=== PATIENT | female | born 1955 | race Caucasian/White ===

== ENCOUNTER 2019-10-31 16:00 | Emergency (ER) | payer BC ==
[~2019-10-31] VITALS: Ht 165.1 cm; Wt 56.5 kg
[2019-10-31 16:02] VITALS: BP 150/78
[2019-10-31] MEDS ORDERED: dexamethasone sod phosphate 10mg/ml inj PO STA (16:32)
[2019-10-31] MEDS ORDERED: AZIT-63 PO (16:34)
== END 2019-10-31 17:06 | disposition home or self-care (01) ==
LOC: ER 16:01
DX: J20.9 Acute bronchitis, unspecified (principal); F17.210 Nicotine dependence, cigarettes, uncomplicated; Z79.2 Long term (current) use of antibiotics
CPT/HCPCS: 99283; J1100

== ENCOUNTER 2024-02-08 22:23 | Emergency (ER) | payer MEDICARE, MEDICAID ==
[~2024-02-08] VITALS: Ht 165.1 cm; Wt 49.1 kg
[2024-02-08] MEDS ORDERED: AZIT-164 PO (23:44)
[2024-02-08 23:51] VITALS: BP 105/65; PULSE 80; RESP 18; TEMP 99.6; O2SAT 98
== END 2024-02-08 23:54 | disposition home or self-care (01) ==
LOC: ER 22:23
DX: J40 Bronchitis, not specified as acute or chronic (principal); F17.210 Nicotine dependence, cigarettes, uncomplicated
CPT/HCPCS: 71045; 99283

== ENCOUNTER 2024-05-27 15:01 | Outpatient (CLI) | payer MEDICARE, MEDICAID ==
[~2024-05-27] VITALS: Ht 165.1 cm; Wt 45.8 kg
[2024-05-27 15:37] VITALS: PULSE 73; RESP 16; O2SAT 96
[2024-05-27] MEDS: albuterol 2.5 MG/3 ML nebule NEB PRN (15:46)
[2024-05-27 15:48] VITALS: PULSE 79; RESP 18
== END 2024-05-27 23:59 | disposition home or self-care (01) ==
LOC: RT 15:01
PROVIDERS: ATTEND Nurse Practitioner Family
DX: J43.8 Other emphysema (principal)
CPT/HCPCS: 94060; 94760

== ENCOUNTER 2025-04-25 15:36 | Outpatient (CLI) | payer MEDICARE, MEDICAID ==
--- NOTE | 2025-04-25 16:31 | RADIOLOGY REPORT ---
EXAM: CT CT CHEST INDICATION: NICOTINE DEPENDENCE TECHNIQUE: Noncontrast axial images of the chest have been obtained along with coronal and sagittal r eformatted images. All CT scans at this facility use dose modulation, iterative reconstruction, and/o r weight based dosing when appropriate to reduce radiation dose to as low as reasonably achievable. COMPARISON: DI CHEST,SINGLE VIEW on DOS: 02/08/24 FINDINGS: LOWER NECK: Unremarkable LYMPH NODES/MEDIASTINUM: Right lower paratracheal lymph node, 0.8 cm CARDIOVASCULAR: Normal cardiac size. Trace pericardial fluid. No aneurysmal dilatation of the great v essels. No significant coronary artery calcifications. UPPER ABDOMEN: Small hepatic hypointensity in the left hepatic lobe, 1.1 cm. MUSCULOSKELETAL: No acute fracture or aggressive focal osseous lesion. Multilevel degenerative change of the visualized spine. CHEST WALL: Unremarkable. LUNG PARENCHYMA/PLEURAL SPACE: No pleural effusion or pneumothorax. No suspicious consolidation. Hope trilobular emphysema, moderate to severe in bilateral upper lobes. Small area of parenchymal scarring measuring 6 mm of the periphery of the right upper lobe. IMPRESSION: 1. Lung-RADS 2. Benign appearance or behavior. 3. Continue annual screening with low dose CT in 12 months. 4. Centrilobular emphysema. 5. Right lower paratracheal lymph node measuring 0.8 cm. 6. Small area of parenchymal scarring in the periphery of the right upper lobe measuring 6 mm. 7. Nonspecific hypodense lesion in the left hepatic lobe. Consider follow up CT versus MRI liver prot ocol non emergently.
== END 2025-04-25 23:59 | disposition home or self-care (01) ==
LOC: RAD 15:36
PROVIDERS: ATTEND Physician Assistant Medical
DX: J43.2 Centrilobular emphysema (principal); F17.200 Nicotine dependence, unspecified, uncomplicated; I25.10 Atherosclerotic heart disease of native coronary artery without angina pectoris; J98.4 Other disorders of lung; R59.0 Localized enlarged lymph nodes
CPT/HCPCS: 71250